=== PATIENT | female | born 1950 | race Caucasian/White ===

== ENCOUNTER → 2017-01-16 | Outpatient (CLI) | payer OTHER ==
[~2017-01-16] MED LIST: MULT-506 PO
[2017-01-16 11:17] LABS: BASO % 1.4 %; BASO ABS # 0.08 K/uL (0-0.2); COMPLETE YES; EOS % 7.3 %; IG% 0.2 %; LYMPH % 35.2 %; LYMPH ABS # 2.03 K/uL (1.2-3.4); MEAN CELL VOLUME 88.5 fL (80-100); MEAN CORPUSCULAR HEMOGLOBIN 29.9 pg (25-34); MEAN CORPUSCULAR HGB CONC 33.8 g/dl (32-36); MEAN PLATELET VOLUME 8.6 fL (7.4-10.4); MONO % 13.2 %; NEUT % 42.7 %; PLATELET COUNT 320 K/uL (130-400); RED BLOOD COUNT 4.52 M/uL (4.2-5.4); WHITE BLOOD COUNT 5.77 K/uL (4.8-10.8)
[2017-01-16 11:31] LABS: ALT/SGPT 32 U/L (12-78); BLOOD UREA NITROGEN 9 mg/dl (7-18); BUN/CREATININE RATIO 16.7 (10-20); CALCIUM 9.1 mg/dl (8.5-10.1); CARBON DIOXIDE 29 mmol/L (21-32); CHLORIDE 94 mmol/L (98-107); CHOLESTEROL 150 mg/dl (0-200); CREATININE 0.55 mg/dl (0.60-1.20); GLUCOSE 95 mg/dl (70-99); POTASSIUM 4.5 mmol/L (3.5-5.1); SODIUM 129 mmol/L (136-145); TRIGLYCERIDES 46 mg/dl (0-150); VERY LOW DENSITY LIPOPROT CALC 9 mg/dl
[2017-01-16 11:41] LABS: ALB/GLOB RATIO 1.1 (0.9-2); ALKALINE PHOSPHATASE 87 U/L (45-117); AST/SGOT 33 U/L (15-37); CHOLESTEROL/HDL RATIO 1.8; HDL CHOLESTEROL 83 mg/dl; LDL CHOLESTEROL CALCULATED 58 mg/dl
== END | disposition home or self-care (01) ==
LOC: C.LAB1850 10:03
PROVIDERS: ATTEND Physician Assistant
DX: Z00.00 Encounter for general adult medical examination without abnormal findings (principal)